=== PATIENT | male | born 2000 | race Two or more races ===

== ENCOUNTER 2020-04-17 16:34 | Emergency (ER) | payer SELFPAY ==
[~2020-04-17] VITALS: Ht 182.9 cm; Wt 75.4 kg
[2020-04-17 16:52] VITALS: BP 125/83
[2020-04-17] MEDS ORDERED: DIPH,PERTUSS(ACELL),TET VAC/PF 0.5 ML IM-VACC ONE ×2 (17:00→18:19)
--- NOTE | 2020-04-17 18:09 | NUR ---
insurance claim representative: pt from lobby to room 27
[2020-04-17] MEDS ORDERED: RABIES VACCINE /PF 2.5 UNITS IM-VACC STA (18:42)
[2020-04-17] MEDS ORDERED: RABIES IMMUNE GLOBULIN/PF 150 UNITS/ML, 2ML IM ONE (19:00)
--- NOTE | 2020-04-17 19:15 | NUR ---
CLEANED WOUNDS WITH NS AND IODINE. PT DOWN TO XRAY.
[2020-04-17] MEDS ORDERED: AMOXICILLIN/CLAV 875-125MG TABLET PO ONE (20:00)
[2020-04-17] MEDS ORDERED: HYDROcodone/APAP 5/325 TABLET PO ONE (20:00)
--- NOTE | 2020-04-17 20:00 | NUR ---
PT IN BED
[2020-04-17] MEDS ORDERED: HYDROcodone/APAP 5/325 TABLET ONE (20:01)
[2020-04-17] MEDS ORDERED: AMOXICILLIN/CLAV 875-125MG TABLET ONE (20:03)
== END 2020-04-17 21:00 | disposition home or self-care (01) ==
LOC: ED 17:00
DX: S51.851A Open bite of right forearm, initial encounter (principal); S71.151A Open bite, right thigh, initial encounter; S51.052A Open bite, left elbow, initial encounter; S71.152A Open bite, left thigh, initial encounter; W54.0XXA Bitten by dog, initial encounter; Y93.89 Activity, other specified; Y92.488 Other paved roadways as the place of occurrence of the external cause; Y99.8 Other external cause status
CPT/HCPCS: 90375; 90471; 90472; 90675; 90715; 96372; 99284

== ENCOUNTER 2020-04-20 15:29 | Emergency (ER) | payer SELFPAY ==
[~2020-04-20] VITALS: Ht 182.9 cm; Wt 75.6 kg
[2020-04-20] MEDS ORDERED: NEOSPORIN OINT. PKT 1 PACKET ONE (15:57)
[2020-04-20] MEDS ORDERED: RABIES VACCINE /PF 2.5 UNITS IM-VACC ONE (16:00)
== END 2020-04-20 16:45 | disposition home or self-care (01) ==
LOC: ED 16:00
DX: S50.871A Other superficial bite of right forearm, initial encounter (principal); S50.872A Other superficial bite of left forearm, initial encounter; S81.812A Laceration without foreign body, left lower leg, initial encounter; W54.0XXA Bitten by dog, initial encounter; Y93.89 Activity, other specified; Y92.89 Other specified places as the place of occurrence of the external cause; Y99.8 Other external cause status
CPT/HCPCS: 90675; 99282; 99283

== ENCOUNTER 2020-04-29 11:05 | Emergency (ER) | payer SELFPAY ==
[~2020-04-29] VITALS: Ht 177.8 cm; Wt 70.1 kg
--- NOTE | 2020-04-29 11:09 | NUR ---
CALLED FOR TRIAGE AT THIS TIME. NO ANSWER
[2020-04-29 11:17] VITALS: BP 143/86
[2020-04-29] MEDS ORDERED: RABIES VACCINE /PF 2.5 UNITS IM-VACC ONE (12:00)
== END 2020-04-29 13:53 | disposition home or self-care (01) ==
LOC: ED 13:32
DX: Z23 Encounter for immunization (principal); S51.852D Open bite of left forearm, subsequent encounter; S51.851D Open bite of right forearm, subsequent encounter; S71.152D Open bite, left thigh, subsequent encounter; W54.0XXD Bitten by dog, subsequent encounter
CPT/HCPCS: 90471; 90675; 99281; 99283

== ENCOUNTER 2020-05-01 17:13 | Emergency (ER) | payer SELFPAY ==
--- NOTE | 2020-05-01 17:31 | NUR ---
NIL X1
--- NOTE | 2020-05-01 17:42 | NUR ---
NIL X2
--- NOTE | 2020-05-01 17:57 | NUR ---
nilx3
== END 2020-05-01 17:58 | disposition left against medical advice (07) ==
LOC: ED 17:52
DX: R68.89 Other general symptoms and signs (principal); Z53.21 Procedure and treatment not carried out due to patient leaving prior to being seen by health care provider

== ENCOUNTER 2020-05-03 16:05 | Emergency (ER) | payer SELFPAY ==
[~2020-05-03] VITALS: Ht 182.9 cm; Wt 68.2 kg
[2020-05-03 16:22] VITALS: BP 116/69
[2020-05-03] MEDS ORDERED: RABIES VACCINE /PF 2.5 UNITS IM-VACC ONE (16:30)
--- NOTE | 2020-05-03 17:20 | NUR ---
FIELD INSTRUCTOR: PT AMBULATORY TO ROOM FROM LOBBY AT THIS TIME WITH STEADY GAIT WITH MANISH MAYA
--- NOTE | 2020-05-03 17:29 | NUR ---
PRESENTS FOR RABIES VACCINE (LATE SERIES) NO NEUROLOGIC SXS REPORTED WOUNDS HEALING WELL RABIES VACCINE ORDERED FROM PHARMACY
--- NOTE | 2020-05-03 17:55 | NUR ---
medicated per emar. to monitor for 15 min
--- NOTE | 2020-05-03 18:22 | NUR ---
NO SIDE EFFECTS NOTED. REVIEWED MEDICATION INTENTS AND SIDE EFFECTS TEACH BACK SUCCESSFUL DISCHARGED TO HOME
== END 2020-05-03 18:24 | disposition home or self-care (01) ==
LOC: ED 17:30
DX: S71.152D Open bite, left thigh, subsequent encounter (principal); S51.852D Open bite of left forearm, subsequent encounter; W54.0XXD Bitten by dog, subsequent encounter
CPT/HCPCS: 90471; 90675; 99281

== ENCOUNTER 2020-06-14 01:56 | Emergency (ER) | payer SELFPAY ==
[~2020-06-14] VITALS: Ht 180.3 cm; Wt 67.0 kg
--- NOTE | 2020-06-14 02:02 | NUR ---
INITIAL PT CONTACT. BIBA C/O "TAKING SOMETHING EARLIER, I THINK IT WAS RUFINO AND NOW I FEEL WEIRD. MY ARMS ARE JUST MOVING WEIRD". PT DENIES ANY ADDITIONAL SYMPTOMS AT THIS TIME. PT A&OX4, RESPIRATIONS EQUAL AND UNLABORED. PT SITTING UPRIGHT ON GURNEY, RESTING CALMLY WITH EYES CLOSED. ERP AT BEDSIDE.
[2020-06-14 03:00] VITALS: BP 109/66
--- NOTE | 2020-06-14 03:45 | NUR ---
PT INCREASINGLY AGITATED IN ROOM, PACING AND ASKING TO "LEAVE TO GO SMOKE A CIGARETTE AND COME BACK IN. I JUST NEED A CIGARETTE". PT ABLE TO BE REDIRECTED AND RETURNED TO [facility]. ERP AWARE OF PT BEHAVIOR, AWAITING D/C PAPERWORK.
--- NOTE | 2020-06-14 04:06 | NUR ---
PT CONTINUALLY ROAMING HALLS OF ED, WALKING OUT OF ROOM WHILE ACTIVELY TAKING OFF CLOTHES. PT CONTINUES TO STATE "I JUST WANT TO GO OUT TO GET FRESH AIR AND SMOKE A CIGARETTE". MULTIPLE STAFF, INCLUDING THIS RN ATTEMPT TO REDIRECT PT, PT REFUSING TO RETURN TO ROOM AND STAY IN DEPARTMENT. PT PROVIDED D/C INSTRUCTIONS AND BUS PASS AT TIME. PT NOW REFUSING TO LEAVE DEPARTMENT. "I WILL STAY, I REALLY JUST NEED TO LEAVE AND SMOKE AND I WILL COME BACK". PT INCREASINGLY AGITATED AND ARGUMENTATIVE WITH STAFF. SECURITY AT BEDSIDE TO ESCORT PT OUT OF DEPARTMENT. PT AMBULATORY WITH STEADY GAIT. VERBALIZED UNDERSTANDING OF IMPORTANCE OF CESSATION OF DRUG USE.
== END 2020-06-14 04:32 | disposition home or self-care (01) ==
LOC: ED 02:26
DX: F15.129 Other stimulant abuse with intoxication, unspecified (principal); R44.3 Hallucinations, unspecified; R94.31 Abnormal electrocardiogram [ECG] [EKG]; Z72.9 Problem related to lifestyle, unspecified
CPT/HCPCS: 93005; 99283

== ENCOUNTER 2020-06-15 00:53 | Emergency (ER) | payer SELFPAY ==
--- NOTE | 2020-06-15 01:04 | NUR ---
this rn went to assess pt and pt refused vitals and any interventions. pt stated he just wanted a ride from the [place], and then pt left out of the ambulance bay by himself. pt ambulated steady and with all belongings
--- NOTE | 2020-06-15 01:08 | NUR ---
pt walked out at 0106
== END 2020-06-15 01:10 | disposition left against medical advice (07) ==
LOC: ED 01:04
DX: Z53.21 Procedure and treatment not carried out due to patient leaving prior to being seen by health care provider (principal)

== ENCOUNTER 2020-06-15 05:19 | Emergency (ER) | payer MEDICAID ==
[~2020-06-15] VITALS: Ht 182.9 cm; Wt 63.0 kg
--- NOTE | 2020-06-15 05:23 | NUR ---
NIL AT THIS TIME FOR TRIAGE
[2020-06-15 05:24] VITALS: BP 100/58
[2020-06-15] MEDS ORDERED: IBUPROFEN 200 MG TABLET ONE (05:44)
--- NOTE | 2020-06-15 05:53 | NUR ---
PT REFUSING TO LEAVE DEPARTMENT UPON D/C. SECURITY AT BEDSIDE TO ESCORT PT OUT OF DEPARTMENT. AMBULATORY WITH STEADY GAIT.
[2020-06-15] MEDS ORDERED: IBUPROFEN 200 MG TABLET PO ONE (06:00)
== END 2020-06-15 05:56 | disposition home or self-care (01) ==
LOC: ED 05:45
DX: M79.602 Pain in left arm (principal); Z72.9 Problem related to lifestyle, unspecified
CPT/HCPCS: 99282

== ENCOUNTER 2020-06-25 01:45 | Emergency (ER) | payer SELFPAY ==
[~2020-06-25] VITALS: Ht 182.9 cm; Wt 70.0 kg
[2020-06-25] MEDS ORDERED: LORazepam 2 MG/ML, 1ML ONE ×3 (02:06→02:46)
--- NOTE | 2020-06-25 02:19 | NUR ---
BIB BY [facility] FROM HOME. PARENTS CONCERNED ABOUT PATIENT'S ERRATIC BEHAVIOR ADMITS TO SMOKING METH. PARANOID. BUT RE-DIRECTABLE HR 120 ASKING FOR WATER/FOOD PIV PLACED. MEDICATED WITH ATIVAN/1L NS
[2020-06-25] MEDS ORDERED: SODIUM CHLORIDE 0.9% 1,000ML IVBOLUS ONE (02:30)
[2020-06-25] MEDS ORDERED: LORazepam 2 MG/ML, 1ML IVPush ONE ×2 (02:30)
--- NOTE | 2020-06-25 02:30 | NUR ---
PATIENT RIPPED IV OUT AND STILL QUITE PARANOID. ERP AWARE. NEW PIV PLACED AND RE-MEDICATED
--- NOTE | 2020-06-25 02:52 | NUR ---
PATIENT STILL AGITATED. GIVEN 3RD MG OF ATIVAN
[2020-06-25] MEDS ORDERED: ZIPRASIDONE 20 MG INJ IM ONE ×2 (03:03→03:30)
--- NOTE | 2020-06-25 03:10 | NUR ---
PATIENT STILL AGITATED. ATTEMPTING TO PULL PIV OUT/PULL MONITOR OFF, ETC RE-MEDICATED WITH ISAAK PATIENT MOVED TO ROOM 39 FOR CONTINUED MONITORING REPORT TO RODRIGUEZ MAYA
--- NOTE | 2020-06-25 05:07 | NUR ---
PT RESTING IN BED, PT ON MONITOR WITH PT VSS. PT WAS MEDICATED PER MAR BY PREVIOUS RN.
--- NOTE | 2020-06-25 06:05 | NUR ---
PT RESTING IN BED. PT ON MONITOR WITH VSS. PT MEDICATED PER MAR. PT DENIED ANY CURRENT NEEDS OR WANTS.
--- NOTE | 2020-06-25 07:00 | NUR ---
ASSUMING CARE OF PATIENT. REPORT FROM RODRIGUEZ BRANHAM RN. PT ASLEEP WITH EVEN AND UNLABORED RESPIRATIONS. VSS. [place].
--- NOTE | 2020-06-25 08:03 | NUR ---
RN ATTEMPTED TO DO ROAD TEST WITH PT. UPON SITTING PT ALMOST FELL OVER R/T DROWSINESS. PT BACK TO BED. WILL ATTEMPT AGAIN. VSS.
--- NOTE | 2020-06-25 08:16 | NUR ---
BREAK RN: PT SLEEPING ON GURNEY, RESPIRATIONS EVEN AND UNLABORED. NADN/VSS. CALL LIGHT WITHIN REACH
[2020-06-25 09:00] VITALS: BP 103/77
--- NOTE | 2020-06-25 09:01 | NUR ---
Patient given discharge instructions and they have confirmed that they understand the instructions. Patient ambulatory with steady gait.
== END 2020-06-25 09:02 | disposition home or self-care (01) ==
LOC: ED 03:49
DX: F15.121 Other stimulant abuse with intoxication delirium (principal); F15.122 Other stimulant abuse with intoxication with perceptual disturbance; F17.210 Nicotine dependence, cigarettes, uncomplicated
CPT/HCPCS: 96361; 96372; 96374; 99285; 99406; J2060; J3486; J7030

== ENCOUNTER 2020-07-11 18:45 | Emergency (ER) | payer SELFPAY ==
[~2020-07-11] VITALS: Ht 188 cm; Wt 66.4 kg
[2020-07-11] MEDS ORDERED: NALOXONE 1 MG/ML, 2ML IVPush ONE (20:00)
[2020-07-11] MEDS ORDERED: NALOXONE 1 MG/ML, 2ML ONE (20:03)
--- NOTE | 2020-07-11 20:15 | NUR ---
PT GIVEN NARCAN S ANY CHANGE. WILL CTM.
[2020-07-11 20:31] LABS: ANION GAP 9 mmol/L (5-15); CALCIUM 8.2 mg/dL (8.5-10.1); CHLORIDE 113 mmol/L (98-107)
[2020-07-11 20:32] LABS: BASOPHILS % (AUTO) 0 % (0-1); EOSINOPHILS % (AUTO) 2 % (1-7); LYMPHOCYTES % (AUTO) 36 % (22-44); MEAN CORPUSCULAR HEMOGLOBIN 32.6 pg (27.5-34.5); MEAN CORPUSCULAR HGB CONC 34.6 g/dL (33.2-36.2); MEAN PLATELET VOLUME 7.4 fL (7.4-10.4); MONOCYTES % (AUTO) 5 % (2-9); NEUTROPHILS % (AUTO) 56 % (42-75); PLATELET COUNT 243 x10^3/uL (130-400); RED BLOOD COUNT 5.06 x10^6/uL (4.38-5.82); RED CELL DISTRIBUTION WIDTH 12.8 % (9.4-14.8)
[2020-07-11 20:34] LABS: ALANINE AMINOTRANSFERASE 31 U/L (12-78); ALKALINE PHOSPHATASE 62 U/L (45-117); BILIRUBIN,TOTAL 2.2 mg/dL (0.2-1.0); CREATININE 0.73 mg/dL (0.7-1.3); TOTAL PROTEIN 7.3 g/dL (6.4-8.2)
[2020-07-11 20:39] LABS: MD NO
[2020-07-11 20:58] LABS: SALICYLATE LEVEL < 1.7 mg/dL (2.8-20.0)
--- NOTE | 2020-07-11 21:24 | NUR ---
PT TO CT
--- NOTE | 2020-07-11 23:30 | NUR ---
PT SLEEPING, DIFFICULT TO AROUSE, ONLY MUMBLES. WILL CTM.
--- NOTE | 2020-07-12 01:55 | NUR ---
PT SLEEPING. RR EVEN NON LABORED. WILL CTM.
[2020-07-12 02:27] VITALS: BP 121/54
== END 2020-07-12 02:28 | disposition home or self-care (01) ==
LOC: ED 21:18
DX: F10.229 Alcohol dependence with intoxication, unspecified (principal); R94.31 Abnormal electrocardiogram [ECG] [EKG]; R41.82 Altered mental status, unspecified; F17.210 Nicotine dependence, cigarettes, uncomplicated; Y90.0 Blood alcohol level of less than 20 mg/100 ml
CPT/HCPCS: 36415; 70450; 80053; 80299; 80320; 80329; 85025; 93005; 96374; 99285; 99406; J2310; G0480